=== PATIENT | female | born 1930 | race Caucasian/White ===

== ENCOUNTER 2020-07-21 12:39 | Emergency (ER) | payer MEDICARE, BC ==
[~2020-07-21 12:39] MED LIST: AMLODIPINE BESY10 MG PO; ASPIR 8181 MG PO; ASPIRIN81 MG PO; AZITHROMYCIN500 MG PO; BREO ELLIPTA 11 EACH INH; CLARITIN10 M2 PO; COLACE 100MG C100 MG PO; COUMADIN 1MG TAB1 MG PO; COUMADIN2 MG PO; COUMADIN4 MG PO; DOCUSATE SODIU100 MG PO; ECOTRIN81 MG PO; ENSURE LIQUID237 ML PO; ERTAPENEM1 GM IV; FERROUS SULFAT325 MG PO; LEVAQUIN TAB 5500 MG PO; LEVAQUIN500 MG PO; LEVOXYL75 MCG PO; LIPITOR TAB 1010 MG PO; LOPRESSOR 25 MG25 MG PO; MAPAP500 M1 PO; NORCO 5-325 TA1 EACH PO; NORVASC10 MG PO; OMNICEF 300 MG300 MG PO; PAIN RELIEVER650 MG PO; PREDNISONE10 MG PO; PROTONIX 20 MG20 MG PO; PROTONIX IV40 MG IVP; PROTONIX20 MG PO; PROTONIX40 MG PO; ROCEPHIN 1 GM AD1 GM IV; SENOKOT-S TABL1 EACH PO; SPIRIVA RESPIMAT4 GM INH; SYNTHROID75 MCG PO; TESSALON PERLE100 MG PO; TRAMADOL HCL50 MG PO; TRAZODONE HCL50 MG PO; ULTRAM50 MG PO; VENTOLIN HFA 66.7 GM INH; ZOFRAN4 MG PO; normal saline IV
[2020-07-21] MEDS ORDERED: CEFUROXIME500 MG PO (15:00)
[2020-07-30] MEDS ORDERED: TRAZODONE HCL50 MG PO (04:01)
[2020-07-30] MEDS ORDERED: WARFARIN SODIUM2 MG PO (05:07)
== END 2020-07-21 15:11 | disposition home or self-care (01) ==
LOC: ER1 12:39
DX: S81.811A Laceration without foreign body, right lower leg, initial encounter (principal); R51.9 Headache, unspecified; I10 Essential (primary) hypertension; Z88.0 Allergy status to penicillin; Z88.2 Allergy status to sulfonamides; W01.0XXA Fall on same level from slipping, tripping and stumbling without subsequent striking against object, initial encounter; Y92.009 Unspecified place in unspecified non-institutional (private) residence as the place of occurrence of the external cause
CPT/HCPCS: 70450; 73590; 99283

== ENCOUNTER 2020-07-30 09:38 | Inpatient (IN) | payer MEDICARE, BC ==
[~2020-07-30] VITALS: Ht 157.5 cm; Wt 54.9 kg
[~2020-07-30 09:38] MED LIST changes: +CEFUROXIME500 MG PO; +WARFARIN SODIUM2 MG PO
[2020-07-30] MEDS ORDERED: LIPITOR TAB 1010 MG PO (10:15)
[2020-07-30 10:34] LABS: HEMOGLOBIN 9.9 gm/dl (12.3-15.3); RED BLOOD COUNT 3.24 M/UL (4.00-5.10); WHITE BLOOD COUNT 18.3 K/UL (4.5-11.0)
[2020-07-30 11:11] LABS: BUN/CREATININE RATIO 12 (0-10)
[2020-07-30] MEDS ORDERED: DONEPEZIL HCL5 MG PO (12:59)
[2020-07-30] MEDS ORDERED: LEVOTHYROXINE50 MCG PO (13:14)
[2020-07-30] MEDS ORDERED: ZYRTEC10 MG PO (14:52)
[2020-07-31 05:09] LABS: HEMOGLOBIN 9.1 gm/dl (12.3-15.3); RED BLOOD COUNT 3.01 M/UL (4.00-5.10)
[2020-07-31 05:20] LABS: WHITE BLOOD COUNT 12.9 K/UL (4.5-11.0)
[2020-08-01 03:49] LABS: HEMOGLOBIN 8.7 gm/dl (12.3-15.3); RED BLOOD COUNT 2.87 M/UL (4.00-5.10); WHITE BLOOD COUNT 12.6 K/UL (4.5-11.0)
[2020-08-02 05:05] LABS: HEMOGLOBIN 8.8 gm/dl (12.3-15.3); RED BLOOD COUNT 2.9 M/UL (4.00-5.10)
[2020-08-03 02:56] LABS: HEMOGLOBIN 8.9 gm/dl (12.3-15.3); RED BLOOD COUNT 2.91 M/UL (4.00-5.10); WHITE BLOOD COUNT 8.7 K/UL (4.5-11.0)
[2020-08-03] MEDS ORDERED: IPRAT-ALBUT 0.5-3 ML NEB (10:33)
[2020-08-03] MEDS ORDERED: BUDESONIDE0.5 MG/2 M NEB (10:33)
[2020-08-03] MEDS ORDERED: DOXYCYCLINE HY100 MG PO (10:33)
[2020-08-03] MEDS ORDERED: LASIX20 MG PO (10:35)
== END 2020-08-03 13:21 | disposition home or self-care (01) | DRG 602 ==
LOC: ER1 09:38 → CDU 13:13 → M/S 13:13
PROVIDERS: Family Medicine; Internal Medicine; Physician Assistant Medical; ADMIT Internal Medicine
DX: L03.115 Cellulitis of right lower limb (principal); J96.01 Acute respiratory failure with hypoxia; J96.02 Acute respiratory failure with hypercapnia; I50.31 Acute diastolic (congestive) heart failure; N17.9 Acute kidney failure, unspecified; I13.0 Hypertensive heart and chronic kidney disease with heart failure and stage 1 through stage 4 chronic kidney disease, or unspecified chronic kidney disease; K57.92 Diverticulitis of intestine, part unspecified, without perforation or abscess without bleeding; N18.30 Chronic kidney disease, stage 3 unspecified; R79.1 Abnormal coagulation profile; D72.829 Elevated white blood cell count, unspecified; R53.81 Other malaise; I27.20 Pulmonary hypertension, unspecified; E78.5 Hyperlipidemia, unspecified; E03.9 Hypothyroidism, unspecified; Z20.822 Contact with and (suspected) exposure to COVID-19; D50.8 Other iron deficiency anemias; F03.90 Unspecified dementia, unspecified severity, without behavioral disturbance, psychotic disturbance, mood disturbance, and anxiety; I10 Essential (primary) hypertension; F41.9 Anxiety disorder, unspecified; R58 Hemorrhage, not elsewhere classified; Z96.653 Presence of artificial knee joint, bilateral; Z87.11 Personal history of peptic ulcer disease; Z87.898 Personal history of other specified conditions; Z87.891 Personal history of nicotine dependence; Z90.49 Acquired absence of other specified parts of digestive tract; Z90.89 Acquired absence of other organs; Z95.4 Presence of other heart-valve replacement
CPT/HCPCS: ECHO; 36415; 36600; 71045; 80048; 80053; 80202; 81001; 82550; 82553; 82803; 83605; 83735; 83874; 83880; 84484; 85025; 85027; 85610; 86140; 87070; 87086; 87205; 93005; 93306; 94640; 94760; 97110; 97116-GP-CQ; 97161; 97166; 99285; J1940; J2405; J3370; J7070; U0002

== ENCOUNTER → 2020-08-25 | Outpatient (CLI) | payer MEDICARE, BC ==
[~2020-08-25] MED LIST changes: +BUDESONIDE0.5 MG/2 M NEB; +DONEPEZIL HCL5 MG PO; +DOXYCYCLINE HY100 MG PO; +IPRAT-ALBUT 0.5-3 ML INH; +IPRAT-ALBUT 0.5-3 ML NEB; +LASIX20 MG PO; +LEVOTHYROXINE50 MCG PO; +ZYRTEC10 MG PO
== END ==
LOC: KOH-I 07-21 11:30
DX: N18.30 Chronic kidney disease, stage 3 unspecified (principal); N17.9 Acute kidney failure, unspecified; N26.1 Atrophy of kidney (terminal)
CPT/HCPCS: 76775

== ENCOUNTER 2020-09-16 11:54 | Emergency (ER) | payer MEDICARE, BC ==
[~2020-09-16 11:54] MED LIST changes: -IPRAT-ALBUT 0.5-3 ML INH
[2020-09-16 12:55] LABS: HEMOGLOBIN 9.6 gm/dl (12.3-15.3); RED BLOOD COUNT 3.15 M/UL (4.00-5.10); WHITE BLOOD COUNT 8.2 K/UL (4.5-11.0)
[2020-09-16 13:18] LABS: BUN/CREATININE RATIO 14 (0-10)
[2020-09-16] MEDS ORDERED: IPRAT-ALBUT 0.5-3 ML INH (15:03)
== END 2020-09-16 15:32 | disposition home or self-care (01) ==
LOC: ER1 11:54
PROVIDERS: Nurse Practitioner
DX: S09.90XA Unspecified injury of head, initial encounter (principal); M25.552 Pain in left hip; M54.2 Cervicalgia; R06.02 Shortness of breath; E78.5 Hyperlipidemia, unspecified; I11.0 Hypertensive heart disease with heart failure; I50.9 Heart failure, unspecified; Z88.0 Allergy status to penicillin; Z88.2 Allergy status to sulfonamides; Z79.01 Long term (current) use of anticoagulants; Z87.891 Personal history of nicotine dependence; Z86.16 Personal history of COVID-19; Z76.0 Encounter for issue of repeat prescription
CPT/HCPCS: 70450; 71045; 72125; 73502; 80053; 81001; 82550; 82553; 83605; 83735; 83880; 84484; 85025; 85610; 87040; 93005; 94664; 99285

== ENCOUNTER → 2020-09-26 | Outpatient (CLI) | payer MEDICARE, BC ==
[~2020-09-26] MED LIST changes: +IPRAT-ALBUT 0.5-3 ML INH
== END ==
LOC: HEART 5 11:24
DX: I27.20 Pulmonary hypertension, unspecified (principal); J98.4 Other disorders of lung; Z87.891 Personal history of nicotine dependence
CPT/HCPCS: 71046; 94060; 94729

== ENCOUNTER 2021-03-09 13:34 | Emergency (ER) | payer MEDICARE, BC ==
[2021-03-09 14:28] LABS: HEMOGLOBIN 10.2 gm/dl (12.3-15.3); RED BLOOD COUNT 3.31 M/UL (4.00-5.10); WHITE BLOOD COUNT 7.7 K/UL (4.5-11.0)
== END 2021-03-09 18:20 | disposition home or self-care (01) ==
LOC: ER1 13:34
PROVIDERS: Emergency Medicine
DX: K92.2 Gastrointestinal hemorrhage, unspecified (principal); I51.9 Heart disease, unspecified; Z95.1 Presence of aortocoronary bypass graft; Z20.822 Contact with and (suspected) exposure to COVID-19
CPT/HCPCS: 80053; 82272; 85025; 85610; 85730; 99284; U0002